=== PATIENT | male | born 1950 | race Caucasian/White ===

== ENCOUNTER 2023-01-21 10:53 | Emergency (ER) | payer MEDICARE ==
[~2023-01-21] VITALS: Ht 177.8 cm; Wt 86.2 kg
[2023-01-21 12:18] LABS: Prothrombin Time Results 39.7 Sec (9.7-11.5)
[2023-01-21 12:25] LABS: International Normalized Ratio 4.1
[2023-01-21 13:01] LABS: Calcium, Blood 8.9 mg/dL (8.5-10.1); Potassium, Blood 3.6 mmol/L (3.5-5.5)
[2023-01-21 14:45] VITALS: BP 125/91
[2023-01-21] MEDS ORDERED: ONDA4ODT MM (14:52)
[2023-01-21] MEDS ORDERED: DRAMAMINE25 M1 PO (14:52)
== END 2023-01-21 15:00 | disposition home or self-care (01) ==
LOC: ER 10:53
PROVIDERS: Student in an Organized Health Care Education/Training Program
DX: R11.2 Nausea with vomiting, unspecified (principal); R42 Dizziness and giddiness; R00.1 Bradycardia, unspecified; R19.7 Diarrhea, unspecified; Z88.5 Allergy status to narcotic agent; Z86.711 Personal history of pulmonary embolism
CPT/HCPCS: 80048; 83735; 85610; 93005; 93010; 96361; 96374; 96375; 99284-25; A9270; J1790; J2765; J7120